=== PATIENT | female | born 1990 | race Caucasian/White ===

== ENCOUNTER 2022-10-31 18:51 | Emergency (ER) | payer SELFPAY ==
[2022-10-31] MEDS ORDERED: Ondansetron 4 MG/2 ML SDV IVPUSH ONE (19:53)
[2022-10-31] MEDS ORDERED: fentaNYL 50 MCG/ML SDV IVPUSH ONE (19:53)
[2022-10-31] MEDS ORDERED: Sodium Chloride 0.9% 1,000 ML IV ONE (19:53)
[2022-10-31] MEDS: Sodium Chloride 0.9% 10 ML Syringe FLUSH PRN ×2 (20:19→20:20)
[2022-10-31] MEDS: Sodium Chloride 0.9% 2.5 ML Syringe FLUSH PRN ×2 (20:19→20:20)
[2022-10-31 20:41] LABS: CARBON DIOXIDE,CO2 27.1 mmol/L (21.0-32.0); POTASSIUM,K 3.6 mmol/L (3.5-5.1)
[2022-10-31] MEDS ORDERED: Ketorolac 30 MG/ML SDV IVPUSH ONE (21:14)
== END 2022-10-31 21:50 | disposition home or self-care (01) ==
LOC: MW.ED 18:51
DX: N83.201 Unspecified ovarian cyst, right side (principal); R10.31 Right lower quadrant pain
CPT/HCPCS: 36415; 74176; 80053; 81003; 83690; 85025; 96361; 96374; 96375; 99284; J1885; J2405; J3010; J3490; J7030